=== PATIENT | male | born 1930 | race Hispanic/Latino ===

== ENCOUNTER 2018-08-11 11:01 | Outpatient (CLI) | payer MEDICARE, OTHER | END 2018-08-11 11:02 | disposition home or self-care (01) | LOC: C.LAB 11:01 | DX: I10 Essential (primary) hypertension (principal); E78.2 Mixed hyperlipidemia; I25.10 Atherosclerotic heart disease of native coronary artery without angina pectoris; I50.9 Heart failure, unspecified ==